=== PATIENT | male | born 1995 | race Two or more races ===

== ENCOUNTER 2017-12-27 16:54 | Emergency (ER) | payer SELFPAY ==
[2017-12-27 17:13] LABS: POC GLUCOSE 76 mg/dL (70-99)
[2017-12-27] MEDS: IV NORMAL SALINE 1000ML BAG 1,000 ML IV (17:42)
[2017-12-27 17:53] LABS: ADD MAN DIFF? NO; BASO % 1 % (0-3); EOS # 0.4 x10^3/uL (0.0-0.7); EOS % 5 % (0-3); HEMATOCRIT 50.5 % (39.0-53.0); HEMOGLOBIN 17.3 g/dL (13.0-17.5); LYMPH # 2.7 x10^3/uL (1.0-4.8); LYMPH % 34 % (24-48); MEAN CORPUSCULAR HEMOGLOBIN 29 pg (25-35); MEAN CORPUSCULAR HGB CONC 34 g/dL (31-37); MEAN CORPUSCULAR VOLUME 84 fL (79-100); MONO # 0.3 x10^3/uL (0.0-1.1); MONO % 4 % (0-9); NEUT # 4.5 x10^3uL (1.8-7.7); NEUT % 57 % (31-73); PLATELET COUNT 328 x10^3/uL (140-400); RED BLOOD COUNT 6.02 x10^6/uL (4.30-5.70); RED CELL DISTRIBUTION WIDTH 13.7 % (11.5-14.5); WHITE BLOOD COUNT 7.9 x10^3/uL (4.0-11.0)
[2017-12-27 18:01] LABS: ANION GAP 20 (6-14); BLOOD UREA NITROGEN 11 mg/dL (8-26); CALCIUM 9.2 mg/dL (8.5-10.1); CARBON DIOXIDE 20 mmol/L (21-32); CHLORIDE 104 mmol/L (98-107); GFR 95.3; GLUCOSE 78 mg/dL (70-99); POTASSIUM 3.5 mmol/L (3.5-5.1); SODIUM 144 mmol/L (136-145)
[2017-12-27 18:06] LABS: CREATINE KINASE 259 U/L (39-308)
[2017-12-27] MEDS: HALOPERIDOL LACTATE 5 MG/ML VIAL. IVP (18:07)
[2017-12-27 18:09] LABS: ETHANOL 313 mg/dL (0-10)
== END 2017-12-28 05:00 | disposition home or self-care (01) ==
LOC: ER 12-28 05:00
DX: F10.129 Alcohol abuse with intoxication, unspecified (principal); Y90.8 Blood alcohol level of 240 mg/100 ml or more
CPT/HCPCS: 36415; 80048; 82550; 82962; 85025; 96374; 96375; 99284; G0480; J1630; J2060; J7030

== ENCOUNTER 2019-04-17 19:52 | Emergency (ER) | payer SELFPAY ==
[~2019-04-17] VITALS: Ht 167.6 cm; Wt 53.5 kg
[2019-04-17] MEDS ORDERED: IV NORMAL SALINE 1000ML BAG 1,000 ML IV ONE (20:00)
[2019-04-17] MEDS ORDERED: KETAMINE HCL IN NACL, ISO-OSM 50 MG/5 ML SYRINGE ONE (20:08)
[2019-04-17 20:16] LABS: BARBITURATES NEG (NEG); BENZODIAZEPINES NEG (NEG); CANNABINOIDS NEG (NEG); COCAINE NEG (NEG); METHADONE NEG (NEG); OPIATES NEG (NEG); PHENCYCLIDINE NEG (NEG)
[2019-04-17 20:17] LABS: AMPHETAMINE/METHAMPHETAMINE NEG (NEG)
--- NOTE | 2019-04-17 20:20 | PHYS DOC ---
Past Medical History Past Medical History: Other Additional Past Medical Histor: pt unable to answer questions Past Surgical History: Other Additional Past Surgical Histo: pt unable to answer questions Alcohol Use: Heavy Adult General Chief Complaint Chief Complaint: SUBSTANCE ABUSE HPI HPI Patient is a 24 year oLD male brought in by ambulance with altered mental status apparently drank alcohol for the first time according to EMS report possible other substances on board we do not know exactly what no suicide attempt to gave 0.5 of Narcan patient went from a Nathalie Coma Scale of 7 up to a higher range he was awake and moaning on arrival to the emergency room Review of Systems Review of Systems Unable due to altered mental status Current Medications Current Medications Current Medications Medications (Trade) Dose Ordered Sig/Carly Start Time Stop Time Status Last Admin Dose Admin Ketamine HCl (Ketamine) 50 mg 1X ONCE 04/17/19 20:30 04/17/19 20:31 DC 04/17/19 20:10 50 MG Lorazepam (Ativan Inj) 2 mg 1X ONCE 04/17/19 20:30 04/17/19 20:31 DC 04/17/19 20:03 2 MG Potassium Chloride/Water 100 ml @ 100 mls/hr Q1H 04/17/19 22:00 04/17/19 23:59 DC 04/17/19 22:45 100 MLS/HR Sodium Chloride 1,000 ml @ 1,000 mls/hr 1X ONCE 04/17/19 20:00 04/17/19 20:59 DC 04/17/19 20:00 1,000 MLS/HR Allergies Allergies Allergies Coded Allergies Type Severity Reaction Last Updated Verified No Known Drug Allergies 12/27/17 No Physical Exam Physical Exam Constitutional: Well developed, agitated intermittently biting and yelling HENT: Normocephalic, atraumatic, bilateral external ears normal, oropharynx moist, no oral exudates, nose normal. [] Eyes: PERRLA, EOMI, conjunctiva normal, no discharge. [] Neck: Normal range of motion, no tenderness, supple, no stridor. [] Cardiovascular: Mild tachycardia no definite murmurs Lungs & Thorax: Bilateral breath sounds clear to auscultation [] Abdomen: Bowel sounds normal, soft, no tenderness, no masses, no pulsatile masses. [] Skin: Scattered rashes and abrasions throughout the skin as well as the upper back Back: No tenderness, no CVA tenderness. [] Extremities: No tenderness, no cyanosis, no clubbing, ROM intact, no edema. [] Neurologic: GCS eyes for verbal for motor 6 Psychologic: Agitated as noted above Current Patient Data Vital Signs Vital Signs Date Time Temp Pulse Resp B/P (MAP) Pulse Ox O2 Delivery O2 Flow Rate FiO2 04/18/19 02:00 92 18 101/63 (76) 99 Room Air 04/17/19 20:31 6.0 04/17/19 20:17 98.3 98.3 Lab Values Laboratory Tests Test 04/17/19 20:00 04/17/19 20:30 Urine Opiates Screen Neg (NEG) Urine Methadone Screen Neg (NEG) Urine Barbiturates Neg (NEG) Urine Phencyclidine Screen Neg (NEG) Urine Amphetamine/Methamphetamine Neg (NEG) Urine Benzodiazepines Screen Neg (NEG) Urine Cocaine Screen Neg (NEG) Urine Cannabinoids Screen Neg (NEG) Urine Ethyl Alcohol Pos (NEG) White Blood Count 8.9 x10^3/uL (4.0-11.0) Red Blood Count 5.22 x10^6/uL (4.30-5.70) Hemoglobin 14.3 g/dL (13.0-17.5) Hematocrit 43.0 % (39.0-53.0) Mean Corpuscular Volume 83 fL (79-100) Mean Corpuscular Hemoglobin 27 pg (25-35) Mean Corpuscular Hemoglobin Concent 33 g/dL (31-37) Red Cell Distribution Width 13.7 % (11.5-14.5) Platelet Count 244 x10^3/uL (140-400) Neutrophils (%) (Auto) 76 % (31-73) H Lymphocytes (%) (Auto) 15 % (24-48) L Monocytes (%) (Auto) 5 % (0-9) Eosinophils (%) (Auto) 4 % (0-3) H Basophils (%) (Auto) 1 % (0-3) Neutrophils # (Auto) 6.8 x10^3/uL (1.8-7.7) Lymphocytes # (Auto) 1.3 x10^3/uL (1.0-4.8) Monocytes # (Auto) 0.4 x10^3/uL (0.0-1.1) Eosinophils # (Auto) 0.3 x10^3/uL (0.0-0.7) Basophils # (Auto) 0.0 x10^3/uL (0.0-0.2) Sodium Level 144 mmol/L (136-145) Potassium Level 2.8 mmol/L (3.5-5.1) *L Chloride Level 107 mmol/L (98-107) Carbon Dioxide Level 24 mmol/L (21-32) Anion Gap 13 (6-14) Blood Urea Nitrogen 10 mg/dL (8-26) Creatinine 0.9 mg/dL (0.7-1.3) Estimated GFR (Cockcroft-Gault) 105.5 BUN/Creatinine Ratio 11 (6-20) Glucose Level 82 mg/dL (70-99) Calcium Level 8.7 mg/dL (8.5-10.1) Total Bilirubin 0.4 mg/dL (0.2-1.0) Aspartate Amino Transferase (AST) 23 U/L (15-37) Alanine Aminotransferase (ALT) 14 U/L (16-63) L Alkaline Phosphatase 97 U/L (46-116) Total Protein 8.0 g/dL (6.4-8.2) Albumin 3.9 g/dL (3.4-5.0) Albumin/Globulin Ratio 1.0 (1.0-1.7) Salicylates Level < 2.8 mg/dL (2.8-20.0) L Salicylate Last Dose Date Unk Salicylate Last Dose Time Unk Acetaminophen Level < 2 mcg/ml (10-30) L Acetaminophen Last Dose Date Unk Acetaminophen Last Dose Time Unk Ethyl Alcohol Level 245 mg/dL (0-10) H Laboratory Tests 04/17/19 20:30 Laboratory Tests 04/17/19 20:30 EKG EKG Normal sinus rhythm rate of 96 no acute ischemic changes noted interpreted by me time of encounter[] Radiology/Procedures Radiology/Procedures []FINDINGS: No pathologic extra-axial or intra-axial fluid collection. The ventricles and basal cisterns are within normal limits. No acute intracranial bleed. No focal loss of zayas-white differentiation. No large scalp hematoma. Orbits are within normal limits. No acute calvarial fractures. Visualized paranasal sinuses and mastoid air cells are clear. IMPRESSION: No acute intracranial bleed or calvarial fracture. Electronically signed by: Orlin Rockwell DO (04/17/2019 8:52 PM) [facility] DICTATED and SIGNED BY: ORLIN ROCKWELL DO DATE: 04/17/192051 Impressions: FINDINGS: No pathologic extra-axial or intra-axial fluid collection. The ventricles and basal cisterns are within normal limits. No acute intracranial bleed. No focal loss of zayas-white differentiation. No large scalp hematoma. Orbits are within normal limits. No acute calvarial fractures. Visualized paranasal sinuses and mastoid air cells are clear. IMPRESSION: No acute intracranial bleed or calvarial fracture. Electronically signed by: Orlin Rockwell DO (04/17/2019 8:52 PM) [facility] DICTATED and SIGNED BY: ORLIN ROCKWELL DO DATE: 04/17/192051 NOTED CXR FINDING I DONT THINK PT CLINICAL PICTURE C/W INFECTION Course & Med Decision Making Course & Med Decision Making Pertinent Labs and Imaging studies reviewed. (See chart for details) [] Critical care time was 35 minutes exclusive of procedures. For management of acute agitation requiring IV ketamine 24-year-old male substance abuse unknown agents alcohol allegedly Initially patient came in quite agitated was trying to bite himself kicking nursing staff we called the code zayas we obtained appropriate sedation with 50 mg of IV ketamine and 2 mg of IV Ativan patient responded to that quite well at this time CT scan is currently pending final assesment; more calm and cooperative after sleeping several hours er workup essentially neg escept for etoh d/c to self care Dragon Disclaimer Dragon Disclaimer This electronic medical record was generated, in whole or in part, using a voice recognition dictation system. Departure Departure Impression: Primary Impression: Alcohol intoxication Additional Impression: Hypokalemia Disposition: HOME, SELF-CARE Condition: IMPROVED Referrals: NO PCP (PCP) Problem Qualifiers MINDY ROGERS MD Apr 17, 2019 20:20
[2019-04-17] MEDS ORDERED: KETAMINE HCL IN NACL, ISO-OSM 50 MG/5 ML SYRINGE IV ONE (20:30)
--- NOTE | 2019-04-17 20:31 | RAD ---
PROCEDURE: PORTABLE CHEST 1V CLINICAL INDICATION: Shortness of breath. COMPARISON: None FINDINGS: Heart is normal in size. Prominent bilateral bronchovascular markings with interstitial opacities. No focal consolidation. No pneumothorax or pleural effusion. Visualized bony thorax within normal limits. IMPRESSION: Findings suggests atypical/viral infection or mild interstitial pulmonary edema with pulmonary vascular congestion. Electronically signed by: Orlin Pérez DO (04/17/2019 8:28 PM) [facility]
[2019-04-17 20:44] LABS: BASO % 1 % (0-3); EOS # 0.3 x10^3/uL (0.0-0.7); EOS % 4 % (0-3); HEMOGLOBIN 14.3 g/dL (13.0-17.5); LYMPH # 1.3 x10^3/uL (1.0-4.8); LYMPH % 15 % (24-48); MEAN CORPUSCULAR HEMOGLOBIN 27 pg (25-35); MEAN CORPUSCULAR HGB CONC 33 g/dL (31-37); MEAN CORPUSCULAR VOLUME 83 fL (79-100); MONO # 0.4 x10^3/uL (0.0-1.1); MONO % 5 % (0-9); NEUT # 6.8 x10^3/uL (1.8-7.7); NEUT % 76 % (31-73); PLATELET COUNT 244 x10^3/uL (140-400); RED BLOOD COUNT 5.22 x10^6/uL (4.30-5.70); RED CELL DISTRIBUTION WIDTH 13.7 % (11.5-14.5); WHITE BLOOD COUNT 8.9 x10^3/uL (4.0-11.0)
--- NOTE | 2019-04-17 20:55 | RAD ---
PQRS Compliance statement: One or more of the following individualized dose reduction techniques were utilized for this examination: 1. Automated exposure control. 2. Adjustment of the mA and/or kV according to patient size. 3. Use of iterative reconstruction technique. Indication:Altered mental status.,. TECHNIQUE: CT head without IV contrast COMPARISON:None FINDINGS: No pathologic extra-axial or intra-axial fluid collection. The ventricles and basal cisterns are within normal limits. No acute intracranial bleed. No focal loss of zayas-white differentiation. No large scalp hematoma. Orbits are within normal limits. No acute calvarial fractures. Visualized paranasal sinuses and mastoid air cells are clear. IMPRESSION: No acute intracranial bleed or calvarial fracture. Electronically signed by: Orlin Pérez DO (04/17/2019 8:52 PM) [facility]
[2019-04-17 20:59] LABS: ACETAMIN < 2 mcg/ml (10-30); ETHANOL 245 mg/dL (0-10); SALIC < 2.8 mg/dL (2.8-20.0)
[2019-04-17 21:00] LABS: ALBUMIN 3.9 g/dL (3.4-5.0); CALCIUM 8.7 mg/dL (8.5-10.1); CREATININE 0.9 mg/dL (0.7-1.3); GFR 105.5; TOTAL BILIRUBIN 0.4 mg/dL (0.2-1.0)
[2019-04-17 21:02] LABS: POTASSIUM 2.8 mmol/L (3.5-5.1)
[2019-04-17] MEDS: POTASSIUM CHLORIDE 10MEQ 100 ML IV SCH ×2 (21:40→22:45)
[2019-04-18 02:00] VITALS: BP 101/63
--- NOTE | 2019-04-18 06:10 | EKG ---
[facility] [address] [place] [address] Test Date: 2019-04-17 Test Time: 20:21:13 Pat Name: LEX VARGAS Department: Room: Gender: M Unit Aide Tech: : 1995 Requested By: MINDY ROGERS Order Number: [id number] Reading MD: Bossman Dunbar MD Measurements Intervals [place] Rate: 96 P: 62 MT: 164 QRS: 69 QRSD: 96 T: 35 QT: 336 QTc: 430 Interpretive Statements SINUS RHYTHM Electronically Signed On 04-28-2019 14:42:43 CDT by Bossman Dunbar MD
== END 2019-04-18 02:12 | disposition home or self-care (01) ==
LOC: ER 19:52
DX: F10.129 Alcohol abuse with intoxication, unspecified (principal); E87.6 Hypokalemia; R41.82 Altered mental status, unspecified
CPT/HCPCS: 36415; 70450; 71045; 80053; 80307; 80329; 85025; 93005; 96361; 96365; 99291; G0480; J2060; J3480; J7030; 99152

== ENCOUNTER 2019-05-25 20:21 | Emergency (ER) | payer SELFPAY ==
[~2019-05-25] VITALS: Ht 167.6 cm; Wt 53.5 kg
--- NOTE | 2019-05-25 20:39 | PHYS DOC ---
Past Medical History Past Medical History: Other Additional Past Medical Histor: pt unable to answer questions Past Surgical History: Other Additional Past Surgical Histo: pt unable to answer questions Alcohol Use: Heavy Adult General HPI HPI 24-year-old male presents to the emergency department via EMS. Family called EMS secondary the patient acting inappropriately. They suspect EtOH intoxication as well as potential drug ingestion of unknown type. EMS reports patient was belligerent, aggressive spitting upon arrival, he is a spelled head-on at this time. He is nonverbal my examination unknown at this was a language barrier versus nonparticipation. Patient has no evidence of injury appreciated on initial evaluation. Vital signs are within normal limits at this time. Apparently this is happened before according to patient's history. Review of Systems Review of Systems Unable to obtain reviews of systems at this time secondary to patient's intoxication All other systems were reviewed and found to be within normal limits, except as documented in this note. Current Medications Current Medications Current Medications Medications (Trade) Dose Ordered Sig/Carly Start Time Stop Time Status Last Admin Dose Admin Naloxone HCl (Narcan) 0.2 mg 1X ONCE 05/25/19 21:00 05/25/19 21:01 DC 05/25/19 21:00 0.2 MG Potassium Chloride (Klor-Con) 40 meq 1X ONCE 05/25/19 21:30 05/25/19 21:31 DC Sodium Chloride 1,000 ml @ 1,000 mls/hr 1X ONCE 05/25/19 20:45 05/25/19 21:44 DC 05/25/19 21:01 1,000 MLS/HR Allergies Allergies Allergies Coded Allergies Type Severity Reaction Last Updated Verified No Known Drug Allergies 12/27/17 No Physical Exam Physical Exam Constitutional: Well developed, well nourished, no acute distress, non-toxic appearance, [] HENT: Normocephalic, she does have some scratches appreciated to his face, bilateral external ears normal, oropharynx moist, no oral exudates, nose normal. [] Eyes: PERRLA, EOMI, conjunctiva normal, no discharge. [] Neck: Normal range of motion, no tenderness, supple, no stridor. [] Cardiovascular:Heart rate regular rhythm, no murmur [] Lungs & Thorax: Bilateral breath sounds clear to auscultation [] Abdomen: Bowel sounds normal, soft, no tenderness, no masses, no pulsatile masses. [] Skin: Warm, dry, no erythema, no rash. [] Extremities: No tenderness, no edema. [] Neurologic: Alert and oriented X 3, no focal deficits noted. [] Psychologic: Affect normal, judgement normal, mood normal. [] Current Patient Data Vital Signs Vital Signs Date Time Temp Pulse Resp B/P (MAP) Pulse Ox O2 Delivery O2 Flow Rate FiO2 05/25/19 21:12 86 17 99 05/25/19 20:25 99.2 107/56 (73) Room Air 99.2 Lab Values Laboratory Tests Test 05/25/19 20:32 05/25/19 20:35 Urine Collection Type Unknown Urine Color Straw Urine Clarity Clear Urine pH 6.5 Urine Specific Bryan <=1.005 Urine Protein Negative mg/dL (NEG-TRACE) Urine Glucose (UA) Negative mg/dL (NEG) Urine Ketones (Stick) Negative mg/dL (NEG) Urine Blood Negative (NEG) Urine Nitrite Negative (NEG) Urine Bilirubin Negative (NEG) Urine Urobilinogen Dipstick 0.2 mg/dL (0.2 mg/dL) Urine Leukocyte Esterase Negative (NEG) Urine RBC 0 /HPF (0-2) Urine WBC 0 /HPF (0-4) Urine Transitional Epithelial Cells Occ /LPF Urine Bacteria 0 /HPF (0-FEW) Urine Opiates Screen Neg (NEG) Urine Methadone Screen Neg (NEG) Urine Barbiturates Neg (NEG) Urine Phencyclidine Screen Neg (NEG) Urine Amphetamine/Methamphetamine Neg (NEG) Urine Benzodiazepines Screen Neg (NEG) Urine Cocaine Screen Neg (NEG) Urine Cannabinoids Screen Neg (NEG) Urine Ethyl Alcohol Pos (NEG) White Blood Count 7.0 x10^3/uL (4.0-11.0) Red Blood Count 5.27 x10^6/uL (4.30-5.70) Hemoglobin 14.5 g/dL (13.0-17.5) Hematocrit 43.4 % (39.0-53.0) Mean Corpuscular Volume 82 fL (79-100) Mean Corpuscular Hemoglobin 28 pg (25-35) Mean Corpuscular Hemoglobin Concent 33 g/dL (31-37) Red Cell Distribution Width 13.7 % (11.5-14.5) Platelet Count 256 x10^3/uL (140-400) Neutrophils (%) (Auto) 64 % (31-73) Lymphocytes (%) (Auto) 25 % (24-48) Monocytes (%) (Auto) 4 % (0-9) Eosinophils (%) (Auto) 6 % (0-3) H Basophils (%) (Auto) 1 % (0-3) Neutrophils # (Auto) 4.5 x10^3/uL (1.8-7.7) Lymphocytes # (Auto) 1.8 x10^3/uL (1.0-4.8) Monocytes # (Auto) 0.3 x10^3/uL (0.0-1.1) Eosinophils # (Auto) 0.4 x10^3/uL (0.0-0.7) Basophils # (Auto) 0.1 x10^3/uL (0.0-0.2) Sodium Level 140 mmol/L (136-145) Potassium Level 3.0 mmol/L (3.5-5.1) L Chloride Level 103 mmol/L (98-107) Carbon Dioxide Level 25 mmol/L (21-32) Anion Gap 12 (6-14) Blood Urea Nitrogen 10 mg/dL (8-26) Creatinine 0.9 mg/dL (0.7-1.3) Estimated GFR (Cockcroft-Gault) 105.5 BUN/Creatinine Ratio 11 (6-20) Glucose Level 88 mg/dL (70-99) Calcium Level 8.5 mg/dL (8.5-10.1) Total Bilirubin 0.5 mg/dL (0.2-1.0) Aspartate Amino Transferase (AST) 23 U/L (15-37) Alanine Aminotransferase (ALT) 15 U/L (16-63) L Alkaline Phosphatase 93 U/L (46-116) Total Protein 8.4 g/dL (6.4-8.2) H Albumin 4.1 g/dL (3.4-5.0) Albumin/Globulin Ratio 1.0 (1.0-1.7) Salicylates Level < 2.8 mg/dL (2.8-20.0) L Salicylate Last Dose Date Unk Salicylate Last Dose Time Unk Acetaminophen Level < 2 mcg/ml (10-30) L Acetaminophen Last Dose Date Unk Acetaminophen Last Dose Time Unk Ethyl Alcohol Level 209 mg/dL (0-10) H Laboratory Tests 05/25/19 20:35 Laboratory Tests 05/25/19 20:35 EKG EKG [] Radiology/Procedures Radiology/Procedures [] Course & Med Decision Making Course & Med Decision Making Pertinent Labs and Imaging studies reviewed. (See chart for details) []24-year-old male presents to the emergency department via EMS. Family called EMS secondary the patient acting inappropriately. They suspect EtOH intoxication as well as potential drug ingestion of unknown type. EMS reports patient was belligerent, aggressive spitting upon arrival, he is a spelled head-on at this time. He is nonverbal my examination unknown at this was a language barrier versus nonparticipation. Patient has no evidence of injury appreciated on initial evaluation. Vital signs are within normal limits at this time. Apparently this is happened before according to patient's history Labs reviewed, UDS reviewed - mild elevation of ETOH Patient awaiting family for ride home, unable to leave until that time or is not legally intoxicated Family here for patient Dax Contreras Disclaimer Ben Disclaimer This electronic medical record was generated, in whole or in part, using a voice recognition dictation system. Departure Departure Impression: Primary Impression: Alcohol intoxication Disposition: 01 HOME, SELF-CARE Condition: STABLE Referrals: NO PCP (PCP) Patient Instructions: Alcohol Intoxication, [id number] Additional Instructions: Recommend follow up with PCP 3 - 5 days Return to the ER with worsening symptoms, intractable pain, fever, altered mental status Tylenol/Motrin as needed for pain Problem Qualifiers Primary Impression: Alcohol intoxication Complication of substance-induced condition: uncomplicated Qualified Codes: F10.920 - Alcohol use, unspecified with intoxication, uncomplicated BREE ARIZMENDI MD May 25, 2019 20:39
[2019-05-25] MEDS ORDERED: IV NORMAL SALINE 1000ML BAG 1,000 ML IV ONE (20:45)
[2019-05-25 20:47] LABS: BASO # 0.1 x10^3/uL (0.0-0.2); BASO % 1 % (0-3); EOS # 0.4 x10^3/uL (0.0-0.7); EOS % 6 % (0-3); HEMATOCRIT 43.4 % (39.0-53.0); HEMOGLOBIN 14.5 g/dL (13.0-17.5); LYMPH # 1.8 x10^3/uL (1.0-4.8); LYMPH % 25 % (24-48); MEAN CORPUSCULAR HEMOGLOBIN 28 pg (25-35); MEAN CORPUSCULAR HGB CONC 33 g/dL (31-37); MEAN CORPUSCULAR VOLUME 82 fL (79-100); MONO # 0.3 x10^3/uL (0.0-1.1); MONO % 4 % (0-9); NEUT # 4.5 x10^3/uL (1.8-7.7); NEUT % 64 % (31-73); PLATELET COUNT 256 x10^3/uL (140-400); RED BLOOD COUNT 5.27 x10^6/uL (4.30-5.70); RED CELL DISTRIBUTION WIDTH 13.7 % (11.5-14.5)
[2019-05-25 20:49] LABS: BILIRUBIN,URINE NEGATIVE (NEG); CLARITY,URINE CLEAR; NITRITE,URINE NEGATIVE (NEG); PH,URINE 6.5; PROTEIN,URINE NEGATIVE (NEG-TRACE); UROBILINOGEN,URINE 0.2 mg/dL (0.2 mg/dL)
[2019-05-25 20:55] LABS: BACTERIA,URINE 0 /HPF (0-FEW); BARBITURATES NEG (NEG); BENZODIAZEPINES NEG (NEG); CANNABINOIDS NEG (NEG); COCAINE NEG (NEG); COLOR,URINE STRAW; METHADONE NEG (NEG); OPIATES NEG (NEG); PHENCYCLIDINE NEG (NEG); RBC,URINE 0 /HPF (0-2); WBC,URINE 0 /HPF (0-4)
[2019-05-25 20:56] LABS: AMPHETAMINE/METHAMPHETAMINE NEG (NEG)
[2019-05-25 20:58] LABS: CALCIUM 8.5 mg/dL (8.5-10.1); CREATININE 0.9 mg/dL (0.7-1.3); GFR 105.5
[2019-05-25] MEDS ORDERED: NALOXONE 0.4 MG/ML VIAL. IV ONE (21:00)
[2019-05-25 21:02] LABS: ACETAMIN < 2 mcg/ml (10-30); ETHANOL 209 mg/dL (0-10); SALIC < 2.8 mg/dL (2.8-20.0)
[2019-05-25 21:04] LABS: ALBUMIN 4.1 g/dL (3.4-5.0); TOTAL BILIRUBIN 0.5 mg/dL (0.2-1.0); TOTAL PROTEIN 8.4 g/dL (6.4-8.2)
[2019-05-25 21:12] VITALS: BP 117/65
[2019-05-25] MEDS ORDERED: POTASSIUM CHLORIDE 20 MEQ TABLET.ER. PO ONE (21:30)
== END 2019-05-25 22:21 | disposition home or self-care (01) ==
LOC: ER 20:21
DX: F10.229 Alcohol dependence with intoxication, unspecified (principal)
CPT/HCPCS: 36415; 80053; 80307; 80329; 81001; 85025; 96374; 99284; G0480; J2310; J7030

== ENCOUNTER 2019-06-10 17:17 | Emergency (ER) | payer SELFPAY ==
[~2019-06-10] VITALS: Ht 165.1 cm; Wt 53.5 kg
[2019-06-10] MEDS ORDERED: IV NORMAL SALINE 1000ML BAG 1,000 ML IV ONE (17:45)
[2019-06-10] MEDS ORDERED: ZIPRASIDONE IM 20 MG VIAL. IM ONE (17:45)
[2019-06-10 17:56] LABS: BASO % 1 % (0-3); EOS # 0.9 x10^3/uL (0.0-0.7); EOS % 13 % (0-3); HEMATOCRIT 43.3 % (39.0-53.0); HEMOGLOBIN 14.5 g/dL (13.0-17.5); LYMPH # 2.4 x10^3/uL (1.0-4.8); LYMPH % 34 % (24-48); MEAN CORPUSCULAR HEMOGLOBIN 28 pg (25-35); MEAN CORPUSCULAR HGB CONC 34 g/dL (31-37); MEAN CORPUSCULAR VOLUME 82 fL (79-100); MONO # 0.3 x10^3/uL (0.0-1.1); MONO % 4 % (0-9); NEUT # 3.5 x10^3/uL (1.8-7.7); NEUT % 49 % (31-73); PLATELET COUNT 259 x10^3/uL (140-400); RED BLOOD COUNT 5.27 x10^6/uL (4.30-5.70); RED CELL DISTRIBUTION WIDTH 14.3 % (11.5-14.5); WHITE BLOOD COUNT 7.2 x10^3/uL (4.0-11.0)
[2019-06-10 18:04] LABS: CALCIUM 8.6 mg/dL (8.5-10.1); CREATININE 0.8 mg/dL (0.7-1.3); GFR 120.9; POTASSIUM 3.4 mmol/L (3.5-5.1)
--- NOTE | 2019-06-10 18:05 | PHYS DOC ---
Past Medical History Past Medical History: Other Additional Past Medical Histor: pt unable to answer questions (GIULIANA BRANDON NP) Past Surgical History: Other Additional Past Surgical Histo: pt unable to answer questions (GIULIANA BRANDON NP) Alcohol Use: Heavy (GIULIANA BRANDON NP) Adult General Chief Complaint Chief Complaint: ALTERED MENTAL STATUS HPI HPI Patient is a 24 year old MALE who presents with altered mental status. EMS reports that he was found walking unsteady down the street and unable to answer questions intelligibly. Patient presents to ED screaming out "Mommy!" over and over and then just non-sensical noises. (GIULIANA BRANDON NP) Review of Systems Review of Systems Upon arrival, unable to obtain any information from patient secondary to altered mental status. (GIULIANA BRANDON NP) Current Medications Current Medications Current Medications Medications (Trade) Dose Ordered Sig/Carly Start Time Stop Time Status Last Admin Dose Admin Sodium Chloride 1,000 ml @ 1,000 mls/hr 1X ONCE 06/10/19 17:45 06/10/19 18:44 DC 06/10/19 17:55 1,000 MLS/HR Ziprasidone (Geodon Im) 20 mg 1X ONCE 06/10/19 17:45 06/10/19 17:50 DC 06/10/19 17:54 20 MG (BREE ARIZMENDI MD) Allergies Allergies Allergies Coded Allergies Type Severity Reaction Last Updated Verified No Known Drug Allergies 12/27/17 No (BREE ARIZMENDI MD) Physical Exam Physical Exam Constitutional: Well developed, well nourished. Patient crying and screaming persistently. Does not open eyes. HENT: Normocephalic, atraumatic, bilateral external ears normal, oropharynx moist, external nose normal. Eyes: Unable to assess. Neck: Normal range of motion, no tenderness, supple, no stridor. Cardiovascular: Tachycardic. Unable to auscultate patient due to flailing. Lungs & Thorax: Unable to assess. Abdomen: Unable to assess due to patient flailing. Skin: Diaphoretic, warm, no erythema, no rash. Back: Unable to assess. Extremities: No cyanosis, no clubbing, ROM intact, no edema. Neurologic: Disoriented. Flailing all limbs. Psychologic: Patient screaming upon arrival. Does not respond to any verbal questioning as he continues to yell. (GIULIANA BRANDON NP) Current Patient Data Vital Signs Vital Signs Date Time Temp Pulse Resp B/P (MAP) Pulse Ox O2 Delivery O2 Flow Rate FiO2 06/10/19 18:37 94 16 114/59 (77) 99 Room Air 06/10/19 17:40 98.7 98.7 (BREE ARIZMENDI MD) Lab Values Laboratory Tests Test 06/10/19 17:26 06/10/19 17:45 Urine Collection Type Unknown Urine Color Yellow Urine Clarity Clear Urine pH 6.0 Urine Specific Harman <=1.005 Urine Protein Negative mg/dL (NEG-TRACE) Urine Glucose (UA) Negative mg/dL (NEG) Urine Ketones (Stick) Negative mg/dL (NEG) Urine Blood Negative (NEG) Urine Nitrite Negative (NEG) Urine Bilirubin Negative (NEG) Urine Urobilinogen Dipstick 0.2 mg/dL (0.2 mg/dL) Urine Leukocyte Esterase Negative (NEG) Urine RBC 0 /HPF (0-2) Urine WBC 0 /HPF (0-4) Urine Bacteria 0 /HPF (0-FEW) Urine Opiates Screen Neg (NEG) Urine Methadone Screen Neg (NEG) Urine Barbiturates Neg (NEG) Urine Phencyclidine Screen Neg (NEG) Urine Amphetamine/Methamphetamine Neg (NEG) Urine Benzodiazepines Screen Neg (NEG) Urine Cocaine Screen Neg (NEG) Urine Cannabinoids Screen Neg (NEG) Urine Ethyl Alcohol Pos (NEG) White Blood Count 7.2 x10^3/uL (4.0-11.0) Red Blood Count 5.27 x10^6/uL (4.30-5.70) Hemoglobin 14.5 g/dL (13.0-17.5) Hematocrit 43.3 % (39.0-53.0) Mean Corpuscular Volume 82 fL (79-100) Mean Corpuscular Hemoglobin 28 pg (25-35) Mean Corpuscular Hemoglobin Concent 34 g/dL (31-37) Red Cell Distribution Width 14.3 % (11.5-14.5) Platelet Count 259 x10^3/uL (140-400) Neutrophils (%) (Auto) 49 % (31-73) Lymphocytes (%) (Auto) 34 % (24-48) Monocytes (%) (Auto) 4 % (0-9) Eosinophils (%) (Auto) 13 % (0-3) H Basophils (%) (Auto) 1 % (0-3) Neutrophils # (Auto) 3.5 x10^3/uL (1.8-7.7) Lymphocytes # (Auto) 2.4 x10^3/uL (1.0-4.8) Monocytes # (Auto) 0.3 x10^3/uL (0.0-1.1) Eosinophils # (Auto) 0.9 x10^3/uL (0.0-0.7) H Basophils # (Auto) 0.0 x10^3/uL (0.0-0.2) Sodium Level 140 mmol/L (136-145) Potassium Level 3.4 mmol/L (3.5-5.1) L Chloride Level 101 mmol/L (98-107) Carbon Dioxide Level 22 mmol/L (21-32) Anion Gap 17 (6-14) H Blood Urea Nitrogen 7 mg/dL (8-26) L Creatinine 0.8 mg/dL (0.7-1.3) Estimated GFR (Cockcroft-Gault) 120.9 BUN/Creatinine Ratio 9 (6-20) Glucose Level 93 mg/dL (70-99) Calcium Level 8.6 mg/dL (8.5-10.1) Total Bilirubin 0.4 mg/dL (0.2-1.0) Aspartate Amino Transferase (AST) 21 U/L (15-37) Alanine Aminotransferase (ALT) 16 U/L (16-63) Alkaline Phosphatase 92 U/L (46-116) Total Protein 8.4 g/dL (6.4-8.2) H Albumin 4.1 g/dL (3.4-5.0) Albumin/Globulin Ratio 1.0 (1.0-1.7) Salicylates Level < 2.8 mg/dL (2.8-20.0) L Salicylate Last Dose Date Unknown Salicylate Last Dose Time Unknown Acetaminophen Level < 2.0 mcg/ml (10-30) L Acetaminophen Last Dose Date Unknown Acetaminophen Last Dose Time Unknown Ethyl Alcohol Level 251 mg/dL (0-10) H Laboratory Tests 06/10/19 17:45 Laboratory Tests 06/10/19 17:45 (BREE ARIZMENDI MD) Lab Values Laboratory Tests Test 06/10/19 17:26 06/10/19 17:45 Urine Collection Type Unknown Urine Color Yellow Urine Clarity Clear Urine pH 6.0 Urine Specific Harman <=1.005 Urine Protein Negative mg/dL (NEG-TRACE) Urine Glucose (UA) Negative mg/dL (NEG) Urine Ketones (Stick) Negative mg/dL (NEG) Urine Blood Negative (NEG) Urine Nitrite Negative (NEG) Urine Bilirubin Negative (NEG) Urine Urobilinogen Dipstick 0.2 mg/dL (0.2 mg/dL) Urine Leukocyte Esterase Negative (NEG) Urine RBC 0 /HPF (0-2) Urine WBC 0 /HPF (0-4) Urine Bacteria 0 /HPF (0-FEW) Urine Opiates Screen Neg (NEG) Urine Methadone Screen Neg (NEG) Urine Barbiturates Neg (NEG) Urine Phencyclidine Screen Neg (NEG) Urine Amphetamine/Methamphetamine Neg (NEG) Urine Benzodiazepines Screen Neg (NEG) Urine Cocaine Screen Neg (NEG) Urine Cannabinoids Screen Neg (NEG) Urine Ethyl Alcohol Pos (NEG) White Blood Count 7.2 x10^3/uL (4.0-11.0) Red Blood Count 5.27 x10^6/uL (4.30-5.70) Hemoglobin 14.5 g/dL (13.0-17.5) Hematocrit 43.3 % (39.0-53.0) Mean Corpuscular Volume 82 fL (79-100) Mean Corpuscular Hemoglobin 28 pg (25-35) Mean Corpuscular Hemoglobin Concent 34 g/dL (31-37) Red Cell Distribution Width 14.3 % (11.5-14.5) Platelet Count 259 x10^3/uL (140-400) Neutrophils (%) (Auto) 49 % (31-73) Lymphocytes (%) (Auto) 34 % (24-48) Monocytes (%) (Auto) 4 % (0-9) Eosinophils (%) (Auto) 13 % (0-3) H Basophils (%) (Auto) 1 % (0-3) Neutrophils # (Auto) 3.5 x10^3/uL (1.8-7.7) Lymphocytes # (Auto) 2.4 x10^3/uL (1.0-4.8) Monocytes # (Auto) 0.3 x10^3/uL (0.0-1.1) Eosinophils # (Auto) 0.9 x10^3/uL (0.0-0.7) H Basophils # (Auto) 0.0 x10^3/uL (0.0-0.2) Sodium Level 140 mmol/L (136-145) Potassium Level 3.4 mmol/L (3.5-5.1) L Chloride Level 101 mmol/L (98-107) Carbon Dioxide Level 22 mmol/L (21-32) Anion Gap 17 (6-14) H Blood Urea Nitrogen 7 mg/dL (8-26) L Creatinine 0.8 mg/dL (0.7-1.3) Estimated GFR (Cockcroft-Gault) 120.9 BUN/Creatinine Ratio 9 (6-20) Glucose Level 93 mg/dL (70-99) Calcium Level 8.6 mg/dL (8.5-10.1) Total Bilirubin 0.4 mg/dL (0.2-1.0) Aspartate Amino Transferase (AST) 21 U/L (15-37) Alanine Aminotransferase (ALT) 16 U/L (16-63) Alkaline Phosphatase 92 U/L (46-116) Total Protein 8.4 g/dL (6.4-8.2) H Albumin 4.1 g/dL (3.4-5.0) Albumin/Globulin Ratio 1.0 (1.0-1.7) Salicylates Level < 2.8 mg/dL (2.8-20.0) L Salicylate Last Dose Date Unknown Salicylate Last Dose Time Unknown Acetaminophen Level < 2.0 mcg/ml (10-30) L Acetaminophen Last Dose Date Unknown Acetaminophen Last Dose Time Unknown Ethyl Alcohol Level 251 mg/dL (0-10) H Laboratory Tests 06/10/19 17:45 Laboratory Tests 06/10/19 17:45 (GIULIANA BRANDON NP) EKG EKG [] (GIULIANA BRANDON NP) Radiology/Procedures Radiology/Procedures [] (GIULIANA BRANDON NP) Course & Med Decision Making Course & Med Decision Making Patient screaming and flailing all limbs upon arrival. Will not speak or answer questions other than to yell "Mother!" Due to altered mental status, labs ordered. Monitoring to be initiated. Will obtain UA for drugs of abuse. NS 1liter ordered along with Geodon 20mg IM x 1 dose. Assessments to be performed when patient calm. @1830, patient report given to Dr. Lisa Arizmendi and care assumed. Pertinent Labs and Imaging studies reviewed. (See chart for details) [] (GIULIANA BRANDON NP) Course & Med Decision Making Patient family here to pick him up. Labs reviewed. Patient with ETOH intoxication. Plan dc home without need for follow up at this time. (BREE ARIZMENDI MD) Dragon Disclaimer Dragon Disclaimer This electronic medical record was generated, in whole or in part, using a voice recognition dictation system. (GIULIANA BRANDON NP) Departure Departure Impression: Primary Impression: Alcohol intoxication Disposition: HOME, SELF-CARE Condition: STABLE Referrals: NO PCP (PCP) Patient Instructions: Alcohol Intoxication, [id number] Additional Instructions: Recommend follow up with PCP 3 - 5 days Return to the ER with worsening symptoms, intractable pain, fever, altered mental status Tylenol/Motrin as needed for pain Problem Qualifiers Primary Impression: Alcohol intoxication Complication of substance-induced condition: with unspecified complication Qualified Codes: F10.929 - Alcohol use, unspecified with intoxication, unspecified GIULIANA BRANDON NP Jun 10, 2019 18:05 BREE ARIZMENDI MD Jun 10, 2019 18:54
[2019-06-10 18:08] LABS: ACETAMIN < 2.0 mcg/ml (10-30); ETHANOL 251 mg/dL (0-10); SALIC < 2.8 mg/dL (2.8-20.0)
[2019-06-10 18:09] LABS: ALBUMIN 4.1 g/dL (3.4-5.0); TOTAL BILIRUBIN 0.4 mg/dL (0.2-1.0); TOTAL PROTEIN 8.4 g/dL (6.4-8.2)
[2019-06-10 18:13] LABS: BILIRUBIN,URINE NEGATIVE (NEG); CLARITY,URINE CLEAR; COLOR,URINE YELLOW; NITRITE,URINE NEGATIVE (NEG); PROTEIN,URINE NEGATIVE (NEG-TRACE); UROBILINOGEN,URINE 0.2 mg/dL (0.2 mg/dL)
[2019-06-10 18:20] LABS: AMPHETAMINE/METHAMPHETAMINE NEG (NEG); BARBITURATES NEG (NEG); BENZODIAZEPINES NEG (NEG); CANNABINOIDS NEG (NEG); COCAINE NEG (NEG); METHADONE NEG (NEG); OPIATES NEG (NEG); PHENCYCLIDINE NEG (NEG)
[2019-06-10 18:23] LABS: BACTERIA,URINE 0 /HPF (0-FEW); RBC,URINE 0 /HPF (0-2); WBC,URINE 0 /HPF (0-4)
[2019-06-10 18:37] VITALS: BP 114/59
--- NOTE | 2019-06-11 05:53 | EKG ---
[facility] [address] [place] [id number] Test Date: 2019-06-10 Test Time: 17:39:46 Pat Name: LEX VARGAS Department: Room: Gender: M Shove Up: [place] : 1995 Requested By: GIULIANA BRANDON Order Number: [id number] Reading MD: Shan Patterson Measurements Intervals Spicer Rate: 67 P: 72 LA: 158 QRS: 62 QRSD: 90 T: 36 QT: 378 QTc: 402 Interpretive Statements SINUS RHYTHM NORMAL ECG Electronically Signed On 06-16-2019 15:08:53 [employer] by Shan Patterson
== END 2019-06-10 19:05 | disposition home or self-care (01) ==
LOC: ER 17:17
DX: F10.929 Alcohol use, unspecified with intoxication, unspecified (principal); R41.82 Altered mental status, unspecified; F10.20 Alcohol dependence, uncomplicated
CPT/HCPCS: 36415; 80053; 80307; 80329; 81001; 85025; 93005; 96360; 96372; 99285; G0480; J3486; J7030